=== PATIENT | male | born 1990 | race Two or more races ===

== ENCOUNTER 2024-02-26 22:23 | Emergency (ER) | payer OTHER ==
[~2024-02-26] VITALS: Ht 188 cm; Wt 121.4 kg
[2024-02-26] MEDS: HYDROcodone-ACET 10/325MG TAB PO ONE (00:15)
[2024-02-26 23:52] VITALS: PULSE 131; RESP 13; O2SAT 93
[2024-02-27] VITALS: TEMP 98.4
[2024-02-27] MEDS: HYDROmorphone HCL 2 MG/ML VL/or syr IM ONE (00:54)
[2024-02-27 01:00] VITALS: O2SAT 94
[2024-02-27 01:09] VITALS: BP 132/64; PULSE 98; RESP 21
== END 2024-02-27 01:09 | disposition home or self-care (01) ==
LOC: ER 22:23
DX: S46.912A Strain of unspecified muscle, fascia and tendon at shoulder and upper arm level, left arm, initial encounter (principal); S50.02XA Contusion of left elbow, initial encounter; V00.138A Other skateboard accident, initial encounter; Y93.51 Activity, roller skating (inline) and skateboarding; Y92.89 Other specified places as the place of occurrence of the external cause; Y99.8 Other external cause status
CPT/HCPCS: 73030; 73060; 73090; 73130; 96372; 99284; J1170

== ENCOUNTER 2024-02-28 22:15 | Emergency (ER) | payer OTHER ==
[~2024-02-28] VITALS: Ht 157.5 cm; Wt 100.0 kg
[2024-02-29] MEDS: KETOROLAC TROMETH 60MG/2ML VIAL IM ONE (00:45)
[2024-02-29 00:50] VITALS: BP 141/88; PULSE 60; RESP 20; O2SAT 98
== END 2024-02-29 01:02 | disposition home or self-care (01) ==
LOC: ER 22:15 → EDUNIT# 22:15 → EDBD 22:15 → ER 02-29 00:53
DX: M25.512 Pain in left shoulder (principal)
CPT/HCPCS: 73030; 96372; 99283; J1885